=== PATIENT | female | born 1945 | race Caucasian/White ===

== ENCOUNTER → 2016-06-12 14:13 | Outpatient (CLI) | payer MEDICARE ==
[2014-10-29 10:31] VITALS: BMI 31.0
[~2016-06-12 14:13] MED LIST: ASPIRIN EC81 M1 PO; FISH OIL 1,0001 CA1 PO; GARLIC1 CAP PO; HYDROCHLOROTH12.5 M1 PO; LISINOPRIL10 MG PO; PRAVACHOL20 MG PO
== END | disposition home or self-care (01) ==
LOC: D.MAMMO 06-09 09:15
DX: Z12.31 Encounter for screening mammogram for malignant neoplasm of breast (principal)

== ENCOUNTER 2017-07-28 07:51 | Emergency (ER) | payer MEDICARE ==
[~2017-07-28] VITALS: Ht 167.6 cm; Wt 87.3 kg
[2017-07-28 07:55] VITALS: Ht 167.6 cm; Wt 87.3 kg
[2017-07-28] MEDS ORDERED: VITAMIN D250000 UNIT (07:58)
[2017-07-28] MEDS ORDERED: ANAPROX DS550 MG PO (08:32)
[2017-07-28] MEDS ORDERED: HYDROCODON-ACE1 EAC7 PO (08:32)
[2017-07-28 09:40] VITALS: BP 142/92
== END 2017-07-28 09:41 | disposition home or self-care (01) ==
LOC: D.ER 07:51
DX: M47.892 Other spondylosis, cervical region (principal); I10 Essential (primary) hypertension; F17.200 Nicotine dependence, unspecified, uncomplicated

== ENCOUNTER → 2018-03-28 17:11 | Outpatient (CLI) | payer MEDICARE ==
[2017-07-28 07:55] VITALS: BMI 31.0
[~2018-03-28 17:11] MED LIST changes: +ANAPROX DS550 MG PO; +HYDROCODON-ACE1 EAC7 PO; +VITAMIN D250000 UNIT
== END | disposition home or self-care (01) ==
LOC: D.MAMMO 09:45
DX: Z12.31 Encounter for screening mammogram for malignant neoplasm of breast (principal)